=== PATIENT | female | born 2000 | race Native Hawaiian/Other Pacific Islander ===

== ENCOUNTER 2020-01-23 20:12 | Emergency (ER) | payer SELFPAY ==
[2020-01-23 20:20] VITALS: BP 128/80
--- NOTE | 2020-01-23 20:21 | Emergency Department Report ---
Stated Complaint: BODY RASH Time Seen by Provider: 01/23/20 20:16 - HPI History of Present Illness: 18 y/o female comes in for a rash at her left inner proximal inner arm and her inner thighs times 4 days. Took Benadryl help some. - Exam Physical Exam: Axo times 3 NAD Breathing non labored Ambulatory without difficulties Skin erythema from scratching no swelling base is not red MSE screening note: Focused history and physical exam performed. Due to findings the following was ordered: 18 y/o female comes in for a rash at her left inner proximal inner arm and her inner thighs times 4 days. Took Benadryl help some. Recommend to f/u with a primary care provider or veneer joiner. ED Disposition for MSE Disposition: MED SCREENING EXAM-LEFT Is pt being admited?: No Does the pt Need Aspirin: No Condition: Stable Instructions: Acute Rash (ED) Additional Instructions: Recommend to f/u with a primary care provider or veneer joiner. Referrals: EDMUND ROBBINS MD [Staff Physician] - 3-5 Days BRITTNEY PA MD [Staff Physician] - 3-5 Days
== END 2020-01-23 20:34 | disposition left against medical advice (07) ==
LOC: ED 20:12
DX: R21 Rash and other nonspecific skin eruption (principal)
CPT/HCPCS: 99281